=== PATIENT | female | born 1970 | race Asian ===

== ENCOUNTER 2018-04-12 10:24 | Outpatient (CLI) | payer BC ==
[~2018-04-12 10:24] MED LIST: L-NO1TBD6 PO; PLEXUS PROBIOTIC PO; [UNRECOGNIZED DRUG - OTHER] PO; [UNRECOGNIZED DRUG - OTHER] PO
== END 2018-04-12 23:59 | disposition home or self-care (01) ==
LOC: CFH 10:24
PROVIDERS: ATTEND Specialist
DX: Z12.31 Encounter for screening mammogram for malignant neoplasm of breast (principal)
CPT/HCPCS: 77063; 77067